=== PATIENT | female | born 1970 | race Caucasian/White ===

== ENCOUNTER 2021-12-25 17:45 | Emergency (ER) | payer BC, SELFPAY ==
--- NOTE | 2021-12-25 17:50 | ED.HEATRA ---
HPI - Head Injury General Chief complaint: Head Injury Stated complaint: head injury Time Seen by Provider: 12/25/21 17:53 Source: patient and RN notes reviewed Mode of arrival: ambulatory Limitations: no limitations History of Present Illness HPI Narrative: 51-year-old female presents to the [facility] with a laceration to the left scalp area just above the forehead. Patient states that she was cleaning her ceiling fan when she slipped fell hitting her head on the dresser. Denies any new headache, blurry vision, change in vision. No nausea vomiting. Denies any loss of consciousness. Bleeding is controlled. Patient unsure of last Tdap, states it is probably more than 5 years. Related Data Home Medications Medication Instructions Recorded Confirmed empagliflozin [Jardiance] mg 12/25/21 glimepiride mg 12/25/21 metformin mg 12/25/21 sertraline mg 12/25/21 topiramate 12/25/21 venlafaxine mg PO 12/25/21 Allergies Allergy/AdvReac Type Severity Reaction Status Date / Time celecoxib Allergy Unknown RASH Verified 03/27/17 13:33 Review of Systems Review of Systems: All systems reviewed & are unremarkable except as noted in HPI and below Constitutional: Constitutional: Reports no additional constitutional complaints, Denies chills and Denies fever(s) Eyes: Eyes: Reports no additional eye complaints, Denies change in vision and Denies photophobia ENT: Reports system reviewed and no additional complaints, except as documented and Denies sore throat Cardiovascular: Cardiovascular: Reports no additional cardiovascular complaints and Denies chest pain Respiratory: Respiratory: Reports no additional respiratory complaints Gastrointestinal: Gastrointestinal: Reports no additional gastrointestinal complaints, Denies nausea and Denies vomiting Musculoskeletal: Musculoskeletal: Reports no additional musculoskeletal complaints, Denies back pain, Denies myalgias and Denies muscle cramps Integumentary/Breasts: Skin/Breast: Reports as per HPI and Reports wounds (Laceration left forehead /scalp) Neurologic: Reports system reviewed and no additional complaints, except as documented, Denies confusion, Denies vertigo, Denies dizziness, Denies syncope, Denies headache(s), Denies focal weakness, Denies numbness and Denies weakness Psychiatric: Psychiatric: Reports no additional psychiatric complaints Allergic/Immunologic: Allergic/Immunologic: Reports no additional allergic/immunologic complaints PMFSH Past Medical History Medical History Anxiety and depression Diabetes Migraines Comments At the time of my signature, I reviewed and agree with the nursing past medical, surgical, social, and family history. There is no relevant family history pertinent to the patient complaint. Exam Const: General: healthy appearing, no acute distress and alert; No confusion Nutritional Appearance: well nourished and obese Orientation/consciousness: patient oriented x3 Limitations: no limitations and No altered mental status HENMT: Head: normal to inspection Head images: 1. 2.5 cm bleeding controlled. Ears: hearing grossly normal bilaterally, external ears normal, TM's normal bilaterally and EAC's normal General nose exam: Normal external nose present Face and sinus: normal facial exam and face symmetric Mouth: Yes Normal oral and palatal mucosa present Eyes: Conjunctivae: conjunctivae normal Pupils: Equal, round and reactive pupils present Neck: Neck: normal visual inspection, no lymphadenopathy and no meningeal signs Chest: Chest palpation & inspection: normal inspection of the chest Resp: Effort & Inspection: normal respiratory effort and no use of accessory muscles Auscultation: clear to auscultation bilaterally, no crackles, no rales, no rhonchi and no wheezes Cardio: Rate: regular rate Rhythm: regular rhythm GI: GI Palp: Yes Soft to palpation and No Tenderness t
[2021-12-25 17:53] VITALS: BP 133/84; PULSE 92; RESP 16; TEMP 35.7; O2SAT 98
[2021-12-25] MEDS: TETANUS,DIPHTHERIA,AC PERTUSSIS ADULT (0.5 ML) BOOSTRIX IM (18:07)
== END 2021-12-25 18:20 | disposition home or self-care (01) ==
PROVIDERS: Emergency Provider Nurse Practitioner; PCP Internal Medicine
DX: S01.01XA Laceration without foreign body of scalp, initial encounter (principal); S09.90XA Unspecified injury of head, initial encounter; W19.XXXA Unspecified fall, initial encounter; Z23 Encounter for immunization; E11.9 Type 2 diabetes mellitus without complications; F41.9 Anxiety disorder, unspecified; F32.A Depression, unspecified
CPT/HCPCS: 12001; 90471; 90715; 99212; G0463

== ENCOUNTER 2022-11-10 18:54 | Emergency (ER) | payer BC, SELFPAY ==
[2022-11-10 19:19] VITALS: BP 135/76; PULSE 104; RESP 16; TEMP 36.4; O2SAT 99
--- NOTE | 2022-11-10 19:40 | ED.URI ---
HPI - URI/Sore Throat General Chief Complaint: Upper Respiratory Infection Stated Complaint: Sinus/ Right Eye Irritation Time Seen by Provider: 11/10/22 19:40 Source: patient Mode of arrival: ambulatory Limitations: no limitations History of Present Illness HPI Narrative: 52-year-old female presents with complaint of right eye redness, drainage for 2 days. Is concerned that she has bacterial conjunctivitis. Reports cough, nasal congestion for 5 days. Afebrile. Reports some mild shortness of breath with exertion today. Has done a COVID test every day and they are all negative. Taking [id number] medications to treat her symptoms. All systems reviewed and negative except as noted above. Related Data Home Medications Medication Instructions Recorded Confirmed empagliflozin 25 mg tablet mg 12/25/21 (Jardiance) glimepiride 4 mg tablet mg 12/25/21 metformin 500 mg tablet mg 12/25/21 sertraline 100 mg tablet mg 12/25/21 topiramate 200 mg tablet 12/25/21 venlafaxine 75 mg tablet,extended mg PO 12/25/21 release 24 hr Allergies Allergy/AdvReac Type Severity Reaction Status Date / Time celecoxib Allergy Unknown RASH Verified 03/27/17 13:33 Review of Systems Review of Systems: CONSTITUTIONAL: Denies fever, chills, or sweats. EYES: Denies visual changes. Reports right eye redness, delete discharge. ENT: Reports rhinorrhea, congestion. Denies sore throat, or otalgia. CARDIOVASCULAR: Denies chest pain, palpitations, or edema. RESPIRATORY: reports cough and dyspnea with exertion. GASTROINTESTINAL: Denies abdominal pain, nausea, vomiting, or diarrhea. GENITOURINARY: Denies dysuria or hematuria. SKIN: Denies rash or itching. MUSCULOSKELETAL: Denies back pain, joint pain, or myalgia. NEUROLOGIC: Denies headache, numbness, or weakness. PSYCHIATRIC: Denies anxiety or depression. All other systems reviewed are negative, except as documented in HPI. PMFSH Past Medical History Medical History Anxiety and depression Diabetes Migraines Exam Narrative: GENERAL: This is a well-nourished, well-developed patient, in no apparent distress. HEAD: normocephalic, atraumatic. EYES: PERRL. Right eye erythematous Sclera and conjunctiva with yellow drainage.. Vision is grossly intact. EARS: External ears normal, auditory canals clear and without drainage, fluid bilateral TMs. NOSE: External nose normal Clear nasal drainage with erythema to bilateral nares. THROAT: Mucous membranes moist, posterior pharynx clear. NECK: Neck supple, non-tender without lymphadenopathy, masses or thyromegaly. CARDIOVASCULAR: Regular rate and rhythm without murmurs, gallops, or rubs. RESPIRATORY: rhonchi noted to right lower lung field. SKIN: warm, Dry, intact with no suspicious lesions or rash, good texture and turgor. NEURO: awake, alert, and oriented to person, place and time. There were no obvious focal neurologic abnormalities. EXTREMITIES: No joint tenderness, effusion, or edema noted. Course Course Level of Care: Express Care Visit Vital Signs Vital signs: Vital Signs Temperature 36.4 C L 11/10/22 19:19 Pulse Rate 104 H 11/10/22 19:19 Respiratory Rate 16 11/10/22 19:19 Blood Pressure 135/76 11/10/22 19:19 Pulse Oximetry 99 11/10/22 19:19 Oxygen Delivery Room Air 11/10/22 19:19 Temperature 36.4 C L 11/10/22 19:19 Pulse Rate 104 H 11/10/22 19:19 Respiratory Rate 16 11/10/22 19:19 Blood Pressure 135/76 11/10/22 19:19 Pulse Oximetry 99 11/10/22 19:19 Oxygen Delivery Room Air 11/10/22 19:19 Reviewed MDM - URI/Sore Throat MDM Narrative Medical decision making narrative: Patient is aware of diagnosis, understands and agrees to treatment plan. Anticipatory guidance given. Patient agrees to follow-up as directed and is aware of reasons to seek care at the emergency department. Portions of this record may have been
== END 2022-11-10 19:56 | disposition home or self-care (01) ==
PROVIDERS: Emergency Provider Nurse Practitioner Family; PCP Internal Medicine
DX: H10.31 Unspecified acute conjunctivitis, right eye (principal); J06.9 Acute upper respiratory infection, unspecified; E11.9 Type 2 diabetes mellitus without complications; F41.9 Anxiety disorder, unspecified; F32.A Depression, unspecified
CPT/HCPCS: 99213; G0463

== ENCOUNTER 2023-11-14 16:19 | Emergency (ER) | payer BC, SELFPAY ==
[2023-11-14 16:32] VITALS: BP 123/87; PULSE 106; RESP 16; TEMP 36.8; O2SAT 99
[2023-11-14 16:35] VITALS: BP 123/87; PULSE 106; RESP 16; TEMP 36.8; O2SAT 99
--- NOTE | 2023-11-14 16:37 | ED.EYEPROB ---
HPI - Eye Problem General Chief complaint: Eye Problems Stated complaint: right eye red Time Seen by Provider: 11/14/23 16:47 Source: patient Mode of arrival: ambulatory Limitations: no limitations History of Present Illness HPI Narrative: 53 yo F presents with itching, redness and drainage to R eye starting this AM. No vision changes. Concerned for pink eye. all systems reviewed and negative except as noted above. Related Data Home Medications Medication Instructions Recorded Confirmed empagliflozin 25 mg tablet 25 mg PO DAILY 12/25/21 11/14/23 (Jardiance) glimepiride 4 mg tablet 4 mg PO DAILY 12/25/21 11/14/23 metformin 500 mg tablet 500 mg PO DAILY 12/25/21 11/14/23 sertraline 100 mg tablet 100 mg PO DAILY 12/25/21 11/14/23 topiramate 200 mg tablet 200 mg PO DAILY 12/25/21 11/14/23 venlafaxine 75 mg tablet,extended 75 mg PO DAILY 12/25/21 11/14/23 release 24 hr atorvastatin 10 mg tablet 10 mg PO DAILY 11/14/23 11/14/23 dulaglutide 1.5 mg/0.5 mL 1.5 mg subcut DAILY 11/14/23 11/14/23 subcutaneous pen injector (Trulicity) Allergies Allergy/AdvReac Type Severity Reaction Status Date / Time celecoxib Allergy Unknown RASH Verified 11/14/23 16:32 adhesive tape Allergy Unknown Verified 11/14/23 16:32 milk Allergy Unknown Verified 11/14/23 16:32 Review of Systems Review of Systems: CONSTITUTIONAL: Denies fever, chills, or sweats. EYES: Denies visual changes Reports right eye redness, itching and discharge. ENT: Denies rhinorrhea, congestion, sore throat, or otalgia. CARDIOVASCULAR: Denies chest pain, palpitations, or edema. RESPIRATORY: Denies cough or dyspnea. GASTROINTESTINAL: Denies abdominal pain, nausea, vomiting, or diarrhea. GENITOURINARY: Denies dysuria or hematuria. SKIN: Denies rash or itching. MUSCULOSKELETAL: Denies back pain, joint pain, or myalgia. NEUROLOGIC: Denies headache, numbness, or weakness. PSYCHIATRIC: Denies anxiety or depression. All other systems reviewed are negative, except as documented in HPI. [facility] Past Medical History Medical History Anxiety and depression Diabetes Migraines Comments At time of signature, agree with nursing past medical, surgical, social and family history. There is no relevant family history pertinent to the presenting complaint. Exam Narrative: GENERAL: This is a well-nourished, well-developed patient, in no apparent distress. HEAD: normocephalic, atraumatic. EYES: PERRL. Sclera and conjunctivae erythematous right eye With yellow drainage and swelling. Vision is grossly intact. EARS: External ears normal NOSE: External nose normal NECK: Neck supple, non-tender without lymphadenopathy, masses or thyromegaly. CARDIOVASCULAR: Regular rate and rhythm without murmurs, gallops, or rubs. RESPIRATORY: Clear to auscultation. Breath sounds equal bilaterally. No wheezes, rales, or rhonchi. SKIN: warm, Dry, intact with no suspicious lesions or rash, good texture and turgor. NEURO: awake, alert, and oriented to person, place and time. There were no obvious focal neurologic abnormalities. EXTREMITIES: No joint tenderness, effusion, or edema noted. Course Course Level of Care: Express Care Visit Vital Signs Vital signs: Vital Signs Temperature 36.8 C 11/14/23 16:32 Pulse Rate 106 H 11/14/23 16:32 Respiratory Rate 16 11/14/23 16:32 Blood Pressure 123/87 11/14/23 16:32 Pulse Oximetry 99 11/14/23 16:32 Oxygen Delivery Room Air 11/14/23 16:32 Temperature 36.8 C 11/14/23 16:35 Pulse Rate 106 H 11/14/23 16:35 Respiratory Rate 16 11/14/23 16:35 Blood Pressure 123/87 11/14/23 16:35 Pulse Oximetry 99 11/14/23 16:35 Oxygen Delivery Room Air 11/14/23 16:35 reviewed MDM - Eye Problem MDM Narrative Medical decision making narrative: Patient is aware of diagnosis, understands and agrees to treatment plan. Anticipatory guidance given. Gopal
== END 2023-11-14 17:08 | disposition home or self-care (01) ==
PROVIDERS: Emergency Provider Nurse Practitioner Family; PCP Internal Medicine
DX: H10.31 Unspecified acute conjunctivitis, right eye (principal); E11.9 Type 2 diabetes mellitus without complications; Z79.84 Long term (current) use of oral hypoglycemic drugs; F41.9 Anxiety disorder, unspecified; F32.A Depression, unspecified
CPT/HCPCS: 99213; G0463

== ENCOUNTER 2025-08-04 16:29 | Emergency (ER) | payer BC, SELFPAY ==
--- NOTE | ~2025-08-04 | XR_ITS ---
EXAMINATION: XR chest 2V 08/04/2025 16:51 INDICATION: Productive cough. Chest congestion TECHNIQUE:Frontal and lateral images of the chest were obtained. COMPARISON: 04/18/2017 FINDINGS: Heart is not enlarged. No pneumothorax. No pleural effusion. No free air the diaphragm. No focal pulmonary consolidation. IMPRESSION: 1: NO ACUTE CARDIOPULMONARY DISEASE. Reviewed, dictated and finalized at location Q.
--- NOTE | 2025-08-04 16:30 | ED.URI ---
HPI - URI/Sore Throat General Chief Complaint: Upper Respiratory Infection Stated Complaint: cough/congestion Time Seen by Provider: 08/04/25 16:30 Source: patient Mode of arrival: ambulatory Limitations: no limitations History of Present Illness HPI Narrative: Zoë is a 55-year-old female patient presenting to the clinic today with complaints of cough, chest congestion, and shortness of breath x1 month. She reports she was seen by her PCP was given prescription for steroids and they did not help so her PCP c send her in a prescription for cephalexin. She reports she is still having a productive cough with green/brown thick mucus, chest congestion, and shortness of breath. She denies any chest pain. She states she has been having to use her albuterol inhaler every 4-6 hours for shortness of breath/wheezing. She denies any fevers, chills, body aches. History of asthma, diabetes, migraine headaches, anxiety, and depression Related Data Home Medications ?Medication ?Instructions ?Recorded ?Confirmed ?Last Taken ?Type empagliflozin 25 mg tablet 25 mg PO DAILY 12/25/21 11/14/23 Unknown History (Jardiance) glimepiride 4 mg tablet 4 mg PO DAILY 12/25/21 11/14/23 Unknown History metformin 500 mg tablet 500 mg PO DAILY 12/25/21 11/14/23 Unknown History sertraline 100 mg tablet 100 mg PO DAILY 12/25/21 11/14/23 Unknown History topiramate 200 mg tablet 200 mg PO DAILY 12/25/21 11/14/23 Unknown History venlafaxine 75 mg tablet,extended 75 mg PO DAILY 12/25/21 11/14/23 Unknown History release 24 hr atorvastatin 10 mg tablet 10 mg PO DAILY 11/14/23 11/14/23 Unknown History albuterol sulfate 90 mcg/actuation inhalation 08/04/25 Unknown History aerosol inhaler Allergies Allergy/AdvReac Type Severity Reaction Status Date / Time celecoxib Allergy Unknown RASH Verified 08/04/25 16:30 adhesive tape Allergy Unknown Verified 08/04/25 16:30 milk Allergy Unknown Verified 08/04/25 16:30 Review of Systems Review of Systems: Pertinent positives per HPI. Patient denies any fever, chills, rash, headache, visual changes, dizziness,chest pain, palpitations, nausea, vomiting, diarrhea, constipation, abdominal pain, or any urinary issues. PMFSH Past Medical History Medical History Anxiety and depression Migraines Diabetes Comments At the time of my signature, I reviewed and agree with the nursing past medical, surgical, social, and family history. There is no relevant family history pertinent to the patient complaint. Exam Narrative: General: Well-developed, well nourished, in no apparent distress Head: Normocephalic, atraumatic Eyes: Pupils equally round and reactive to light bilaterally, EOM intact, sclera and conjunctive clear, no discharge, lids normal Ears: TMs intact and congested, ear canals clear, no drainage, grossly hearing normal. Nose: Nares patent, no discharge, mild inflammation, no sinus tenderness. Mouth: Oral pharynx without lesions or masses, good dentition, MMM. Neck: Supple, trachea midline, no enlargement of anterior or posterior cervical nodes, no thyroid masses or goiter palpable. Cardio: Regular rate and rhythm, s1 and s2 normal, no murmur appreciated. Resp: Expiratory wheezing and rhonchi throughout lung shore, no rales or rubs Course Course Emergency Course: Portions of this record may have been created with voice recognition software. Level of Care: Express Care Visit Vital Signs Vital signs: Vital Signs Temperature 36.2 C L 08/04/25 16:37 Pulse Rate 83 08/04/25 16:37 Respiratory Rate 18 08/04/25 16:37 Blood Pressure 121/72 08/04/25 16:37 Pulse Oximetry 100 08/04/25 16:37 Oxygen Delivery Room Air 08/04/25 16:37 Temperature 36.2 C L 08/04/25 16:37 Pulse Rate 83 08/04/25 16:37 Respiratory Rate 18 08/04/25 16:37 Blood Pressure 121/72 08/04/25 16:37 Pulse Oximetry 100 08/04/25 16:37 Oxygen Delivery Room Air 08/04/25 16:37 Vital signs reviewed MDM - URI/Sore Throat MDM Narrative Medical decision making narrative: At the time of visit patient is resting comfortably on the exam table. Patient appears to be nontoxic. Complaints of cough, chest congestion, and shortness of breath x1 month. She reports she was seen by her PCP was given prescription for steroids and they did not help so her PCP sent her in a prescription for cephalexin. She reports she is still having a productive cough with green/brown thick mucus, chest congestion, and shortness of breath. She states she has been having to use her albuterol inhaler every 4-6 hours for shortness of breath/wheezing. She denies any fevers, chills, body aches. She denies any chest pain. History of asthma, diabetes, migraine headaches, anxiety, and depression. On exam patient has bilateral tm congested, no nasal drainage, mild anterior turbinate inflammation, oropharynx normal, lung sounds expiratory wheezing and rhonchi throughout lung shore, heart rates regular rate and rhythm. SpO2 is 100% on room air and patient is able to speak in full sentences without taking breast. Last time she used her albuterol was at 10:00 a.m. this morning. DuoNeb treatment and chest x-ray was ordered. Medications: DuoNeb hand-held neb treatment given in the clinic today Diagnostics: Chest x-ray was performed and negative for any acute cardiopulmonary process. Plan: I suspect patient has purulent bronchitis. Prescription for Augmentin and prednisone was sent to the pharmacy. Will also send in a prescription for air supra inhaler. Supportive measures were discussed with the patient and they voiced understanding discharge instructions and agrees to treatment plan. Return precautions reviewed Differential Diagnosis Differential diagnosis: Likely upper respiratory infection, otitis media, sinusitis, viral infection, bronchitis, influenza, pharyngitis and other (COVID) Imaging Data Radiologist's impression: ITS Impressions Chest X-Ray 08/04/25 17:02 IMPRESSION: 1: NO ACUTE CARDIOPULMONARY DISEASE. Discharge Plan Discharge Clinical Impression: Acute purulent bronchitis Patient Disposition: Home Condition: Stable Instructions: Antibiotic Form, Acute Bronchitis (ED) Additional Instructions: Chest x-rays negative for any acute cardiopulmonary process. Take prescription medications only as prescribed-air Super inhaler, prednisone, and Augmentin Increase fluids and stay well hydrated May take Tylenol or motrin as directed on bottle for pain/fever May use Flonase 1 spray in each nare daily May take OTC antihistamines such as Zyrtec or Claritin daily as directed on bottle May apply Vicks vapor rub to chest to open sinuses Sinus rinses for congestion Cepacol spray, cough drops, throat lozenges, warm tea with honey/lemon, gargle salt water to soothe throat BRAT diet for diarrhea Clear liquids x 24 hours then advance as tolerated for nausea/vomiting Go to the ED if you develop a worsening in your condition- high fever not controlled by Tylenol or Motrin, dehydration, weakness, lethargy, shortness of breath, or chest pain. Follow up with your PCP in 3-5 days if symptoms persist. Patient Language: Upper Sorbian Prescriptions: New amoxicillin-pot clavulanate 875-125 mg tablet 1 tablet PO Q12H 7 Days Qty: 14 0RF prednisone 50 mg tablet 50 mg PO DAILY 5 Days Qty: 5 0RF Airsupra 90-80 mcg/actuation HFA aerosol inhaler 2 inh inhalation .every 4-6 hours PRN (Reason: shortness of breath) Qty: 10.7 0RF Rx Instructions: may repeat up to 6 doses per day (12 inhalations) No Action metformin 500 mg tablet 500 mg PO DAILY sertraline 100 mg tablet 100 mg PO DAILY glimepiride 4 mg tablet 4 mg PO DAILY topiramate 200 mg tablet 200 mg PO DAILY venlafaxine 75 mg tablet extended release 24hr 75 mg PO DAILY Jardiance 25 mg tablet 25 mg PO DAILY atorvastatin 10 mg tablet 10 mg PO DAILY albuterol sulfate 90 mcg/actuation HFA aerosol inhaler INHALATION Follow-up/Referrals: Trey,Galileo Varela MD [Primary Care Provider] Stand Alone Forms: Work/School Release IP Time of Disposition: 17:19 Quality NIHSS Nursing Documentation ED NIHSS nursing documentation: reviewed/agree
[2025-08-04 16:37] VITALS: BP 121/72; PULSE 83; RESP 18; TEMP 36.2; O2SAT 100
[2025-08-04] MEDS: IPRATROPIUM 0.5 MG/ALBUTEROL SULFATE 2.5 MG (BASE) AMPUL.NEB 3 ML INHALATION (17:00)
== END 2025-08-04 17:30 | disposition home or self-care (01) ==
PROVIDERS: Emergency Provider Nurse Practitioner Family; PCP Internal Medicine
DX: J20.9 Acute bronchitis, unspecified (principal); E11.9 Type 2 diabetes mellitus without complications
CPT/HCPCS: 71046; 94640; 99213; G0463